=== PATIENT | female | born 1995 | race Caucasian/White ===

== ENCOUNTER 2019-03-01 22:39 | Emergency (ER) | payer OTHER ==
[2019-03-01] MEDS ORDERED: METHOCARBAMOL 1,000 MG/10 ML VIAL IV ONE (23:29)
[2019-03-01] MEDS ORDERED: NA CHLORIDE 0.9% 100 ML IV ONE (23:30)
[2019-03-01] MEDS ORDERED: KETOROLAC 30 MG/ML INJ ONE (23:30)
[2019-03-02] MEDS ORDERED: ONDANSETRON 4 MG/2 ML VIAL ONE (00:49)
[2019-03-02] MEDS ORDERED: MORPHINE 4 MG/ML SYR ONE (00:49)
[2019-03-02] MEDS ORDERED: PROMETHAZINE 25 MG/ML VIAL ONE (01:19)
[2019-03-02] MEDS ORDERED: DIAZEPAM 10 MG/2 ML INJ SYRINGE ONE (01:48)
[2019-03-02] MEDS ORDERED: METHYLPREDNISOLONE 125 MG INJ ONE (02:57)
--- NOTE | 2019-03-02 03:19 | ER ---
Nurse's Notes [facility] Name: Bernice Barron Age: 24 yrs Sex: Female : 1995 Arrival Date: 03/01/2019 Time: 22:48 Bed 24 Private MD: Diagnosis: Right Neck Pain;Torticollis Presentation: 03/01 22:56 Presenting complaint: Patient states: "I was in the shower and I turned my head to pop lp1 my neck and now I can't move and it's painful". Transition of care: patient was not received from another setting of care. Onset of symptoms was March 01, 2019 at 22:00. Risk Assessment: Do you want to hurt yourself or someone else? Patient reports no desire to harm self or others. Initial Sepsis Screen: Does the patient meet any 2 criteria? No. Patient's initial sepsis screen is negative. Does the patient have a suspected source of infection? No. Patient's initial sepsis screen is negative. Care prior to arrival: None. 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 - Social history:: Smoking status: Patient/guardian denies using tobacco. - Ebola Screening: : No symptoms or risks identified at this time. Screenin:58 Abuse screen: Denies threats or abuse. Denies injuries from another. Nutritional lp1 screening: No deficits noted. Tuberculosis screening: No symptoms or risk factors identified. Fall Risk None identified. Assessment: 23:36 General: Appears in no apparent distress. uncomfortable, Behavior is calm, cooperative, jd3 appropriate for age. Pain: Complains of pain in neck. Neuro: Level of Consciousness is awake, alert, obeys commands, Oriented to person, place, time, situation, Reports headache Denies blurred vision numbness diplopia. Cardiovascular: Capillary refill < 3 seconds Patient's skin is warm and dry. Respiratory: Airway is compromised Respiratory effort is even, unlabored, Respiratory pattern is regular, symmetrical. GI: No signs and/or symptoms were reported involving the gastrointestinal system. : No signs and/or symptoms were reported regarding the genitourinary system. EENT: No signs and/or symptoms were reported regarding the EENT system. Derm: Skin is intact, Skin is dry, Skin is normal, Skin temperature is warm. Musculoskeletal: Circulation, motion, and sensation intact. Range of motion: intact in all extremities. 03/02 00:31 Reassessment: Patient appears in no apparent distress at this time. Patient and/or jd3 family updated on plan of care and expected duration. Pain level reassessed. Patient is alert, oriented x 3, equal unlabored respirations, skin warm/dry/pink. reports the medication helped a little. reports continued pain, provider notified. awaiting results of CT. 01:23 Reassessment: Patient appears in no apparent distress at this time. Patient and/or jd3 family updated on plan of care and expected duration. Pain level reassessed. Patient is alert, oriented x 3, equal unlabored respirations, skin warm/dry/pink. reporting nausea, provider notified. 02:36 Reassessment: Patient appears in no apparent distress at this time. Patient and/or jd3 family updated on plan of care and expected duration. Pain level reassessed. Patient is alert, oriented x 3, equal unlabored respirations, skin warm/dry/pink. awaiting CT results. pt resting in bed with eye closed, even and unlabored respirations, IV site clean and dry, no redness or swelling. call castillo in reach. 03:09 Reassessment: Patient appears in no apparent distress at this time. Patient and/or jd3 family updated on plan of care and expected duration. Pain level reassessed. Patient is alert, oriented x 3, equal unlabored respirations, skin warm/dry/pink. pt reported understanding of discharge instructions. assisted pt to font of ER with wheelchair. Patient states feeling better. Vital Signs: 03/01 22:57 BP 131 / 70; Pulse 77; Resp 16; Temp 98.1(TE); Pulse Ox 98% on R/A; Weight 86.18 kg lp1 (R); Height 5 ft. 7 in. (170.18 cm); Pain 10/10; 03/02 01:22 BP 100 / 55; Pulse 64; Resp 18 S; Pulse Ox 99% on R/A; jd3 02:35 BP 100 / 50; Pulse 59; Resp 18 S; Pulse Ox 99% on R/A; jd3 03/01 22:57 Body Mass Index 29.76 (86.18 kg, 170.18 cm) lp1 ED Course: 03/01 22:48 Patient arrived in ED. mr 22:49 Nando Mace MD is Attending Physician. kdr 22:57 Triage completed. lp1 22:58 Arm band placed on. lp1 23:35 Binu Alexandra RN is Primary Nurse. jd3 23:39 Patient has correct armband on for positive identification. Bed in low position. Call jd3 light in reach. Side rails up X 1. Adult w/ patient. 23:39 Rigid cervical collar applied and checked by physician. jd3 23:[address] via wheelchair. 03/02 00:25 CT completed. Patient tolerated procedure well. Patient moved back from CT. 02:12 CT completed. Patient tolerated procedure well. Patient moved to CT via stretcher. Patient moved back from CT. 03:08 No provider procedures requiring assistance completed. IV discontinued, intact, jd3 bleeding controlled, No redness/swelling at site. Pressure dressing applied. 03:41 CT C Spine In Process Unspecified. EDMS 04:17 CT Neck Angio In Process Unspecified. EDMS Administered Medications: 03/01 23:36 Drug: Robaxin 1 grams Route: IVPB; Infused Over: 1 hrs; Site: left antecubital; jd3 03/02 00:35 Follow up: Response: No adverse reaction; IV Status: Completed infusion; IV Intake: jd3 100ml 03/01 23:36 Drug: TORadol - Ketorolac 15 mg Route: IVP; Site: left antecubital; jd3 03/02 00:35 Follow up: Response: No adverse reaction jd3 00:53 Drug: Zofran 4 mg Route: IVP; Site: left antecubital; jd3 01:50 Follow up: Response: No adverse reaction jd3 00:54 Drug: morphine 4 mg Route: IVP; Site: left antecubital; jd3 01:50 Follow up: Response: No adverse reaction; RASS: Alert and Calm (0) jd3 01:50 Drug: Valium 5 mg Route: IVP; Site: left antecubital; jd3 02:50 Follow up: Response: No adverse reaction jd3 Intake: 00:35 IV: 100ml; Total: 100ml. jd3 Outcome: 02:42 Discharge ordered by . kdr 03:09 Discharged to home via wheelchair, with friend. jd3 03:09 Condition: stable 03:09 Discharge instructions given to patient, friend, Instructed on discharge instructions, follow up and referral plans. medication usage, Demonstrated understanding of instructions, follow-up care, medications, Prescriptions given X 4. 03:10 Patient left the ED. jd3 Signatures: Dispatcher [employer] EDMS Nando Mace MD MD kdr Rivera, Adriana mota Sarah, Steffanie Roy RN RN lp1 Binu Alexandra RN RN jd3 Corrections: (The following items were deleted from the chart) 00:54 03/01 23:36 TORadol - Ketorolac 15 mg IVP in right antecubital jd3 jd3 03/02 00:55 09 23:36 Robaxin 1 grams IVPB in right antecubital over 1 hrs jd3 jd3
--- NOTE | 2019-03-02 03:21 | EDPHYS ---
Physician Documentation [facility] Name: Bernice Barron Age: 24 yrs Sex: Female : 1995 Arrival Date: 03/01/2019 Time: 22:48 Bed 24 Private MD: ED Physician Nando Mace HPI: 03/01 23:14 This 24 yrs old Female presents to ER via Ambulatory with complaints of Neck kdr Problem. 23:14 The patient or guardian complains of decreased range of motion, an injury, pain, that kdr is acute, spasm, tenderness. The symptoms are located at the C4, on the right posterior aspect of neck, right lateral aspect of neck and right side of neck. Onset: The symptoms/episode began/occurred suddenly, just prior to arrival. Context: The problem was sustained at home, The neck injury/problem resulted from Turning her head while in the shower. Associated signs and symptoms: The patient has no apparent associated signs or symptoms. The pain radiates to the right trapezius. Severity of symptoms: At their worst the symptoms were moderate, severe, incapacitating, just prior to arrival, in the emergency department the symptoms are unchanged. The patient has not experienced similar symptoms in the past. 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 - Social history:: Smoking status: Patient/guardian denies using tobacco. - Ebola Screening: : No symptoms or risks identified at this time. ROS: 23:14 Constitutional: Negative for fever, chills, and weight loss, Eyes: Negative for injury, kdr pain, redness, and discharge, ENT: Negative for injury, pain, and discharge, Cardiovascular: Negative for chest pain, palpitations, and edema, Respiratory: Negative for shortness of breath, cough, wheezing, and pleuritic chest pain, Abdomen/GI: Negative for abdominal pain, nausea, vomiting, diarrhea, and constipation, Back: Negative for injury and pain. 23:14 Neck: Positive for injury or acute deformity, pain with movement, pain at rest, stiffness, tenderness, bony tenderness, of the scalp and right side of neck. Exam: 23:14 Constitutional: This is a well developed, well nourished patient who is awake, alert, kdr and in no acute distress. Head/Face: Normocephalic, atraumatic. Eyes: Pupils equal round and reactive to light, extra-ocular motions intact. Lids and lashes normal. Conjunctiva and sclera are non-icteric and not injected. Cornea within normal limits. Periorbital areas with no swelling, redness, or edema. Chest/axilla: Normal chest wall appearance and motion. Nontender with no deformity. No lesions are appreciated. Cardiovascular: Regular rate and rhythm with a normal S1 and S2. No gallops, murmurs, or rubs. Normal PMI, no JVD. No pulse deficits. Respiratory: Lungs have equal breath sounds bilaterally, clear to auscultation and percussion. No rales, rhonchi or wheezes noted. No increased work of breathing, no retractions or nasal flaring. 23:14 Neck: External neck: tenderness, that is mild, Right lateral pain. Vital Signs: 22:57 BP 131 / 70; Pulse 77; Resp 16; Temp 98.1(TE); Pulse Ox 98% on R/A; Weight 86.18 kg lp1 (R); Height 5 ft. 7 in. (170.18 cm); Pain 04/05; 03/02 01:22 BP 100 / 55; Pulse 64; Resp 18 S; Pulse Ox 99% on R/A; jd3 02:35 BP 100 / 50; Pulse 59; Resp 18 S; Pulse Ox 99% on R/A; jd3 03/01 22:57 Body Mass Index 29.76 (86.18 kg, 170.18 cm) lp1 MDM: 03/01 23:14 Data reviewed: vital signs, nurses notes, radiologic studies. Counseling: I had a kdr detailed discussion with the patient and/or guardian regarding: the historical points, exam findings, and any diagnostic results supporting the discharge/admit diagnosis, radiology results. 03/02 01:55 ED course: While her pain has improved, she continues to have significant neck pain and kdr nausea. 02:42 Patient medically screened. kdr 02:49 ED course: The patient had only partial relief from the pain. kdr 03/01 23:13 Order name: CT C Spine kdr 03/02 01:18 Order name: CT Neck Angio kdr 03/01 23:13 Order name: Cervical Immobilization: Soft collar to neck; Complete Time: 23:35 kdr Administered Medications: 03/01 23:36 Drug: Robaxin 1 grams Route: IVPB; Infused Over: 1 hrs; Site: left antecubital; jd3 03/02 00:35 Follow up: Response: No adverse reaction; IV Status: Completed infusion; IV Intake: jd3 100ml 03/01 23:36 Drug: TORadol - Ketorolac 15 mg Route: IVP; Site: left antecubital; jd3 03/02 00:35 Follow up: Response: No adverse reaction jd3 00:53 Drug: Zofran 4 mg Route: IVP; Site: left antecubital; jd3 01:50 Follow up: Response: No adverse reaction jd3 00:54 Drug: morphine 4 mg Route: IVP; Site: left antecubital; jd3 01:50 Follow up: Response: No adverse reaction; RASS: Alert and Calm (0) jd3 01:50 Drug: Valium 5 mg Route: IVP; Site: left antecubital; jd3 02:50 Follow up: Response: No adverse reaction jd3 Disposition: 03/02/19 02:42 Discharged to Home. Impression: Right Neck Pain, Torticollis. - Condition is Stable. - Discharge Instructions: Acute Torticollis, Adult, Muscle Cramps and Spasms, [id number], Muscle Strain, [id number]. - Prescriptions for Ibuprofen 600 mg Oral Tablet - take 1 tablet by ORAL route every 6 hours As needed take with food; 16 tablet. Tylenol- Codeine #3 300-30 mg Oral Tablet - take 2 tablets by ORAL route every 6 hours As needed You may take one or two tablests every four to six hours as needed for pain; 16 tablet. Cyclobenzaprine 10 mg Oral Tablet - take 1 tablet by ORAL route every 8 hours As needed; 15 tablet. promethazine 25 mg Oral Tablet - take 1 tablet by ORAL route every 6 hours As needed; 12 tablet. - Medication Reconciliation Form, Thank You Letter, Prescription Opioid Use form. - Follow up: Private Physician; When: 2 - 3 days; Reason: If symptoms return, Further diagnostic work-up, Recheck today's complaints, Continuance of care, Re-evaluation by your physician. - Problem is new. - Symptoms have improved. Signatures: Dispatcher [employer] EDMS Nando Mace MD MD kdr Steffanie Arguello RN RN lp1 Binu Alexandra RN RN jd3 Corrections: (The following items were deleted from the chart) 03:10 02:42 03/02/2019 02:42 Discharged to Home. Impression: Right Neck Pain; Torticollis. jd3 Condition is Stable. Forms are Medication Reconciliation Form, Thank You Letter, Antibiotic Education, Prescription Opioid Use. Follow up: Private Physician; When: 2 - 3 days; Reason: If symptoms return, Further diagnostic work-up, Recheck today's complaints, Continuance of care, Re-evaluation by your physician. Problem is new. Symptoms have improved. kdr
--- NOTE | 2019-03-02 10:30 | RAD REPORT ---
EXAM DESCRIPTION: CT - C Spine Wo Con - 03/02/2019 3:18 am CLINICAL HISTORY: PAIN COMPARISON: None. TECHNIQUE: CT CERVICAL SPINE WITHOUT IV CONTRAST on 03/01/2019 11:13 PM CDT This exam was performed according to our departmental dose-optimization program, which includes autom ated exposure control, adjustment of the mA and/or kV according to patient size and/or use of iterati ve reconstruction technique. FINDINGS: There is no acute fracture. Alignment is anatomic. Disc spaces are maintained. Vertebral body heights are preserved. Soft tissues are unremarkable. IMPRESSION: No acute fracture or subluxation. Electronically signed by: Rigo Phillip MD 03/02/2019 12:28 AM CDT Due to temporary technical issues with the PACS/Fluency reporting system, reports are being signed by the in house radiologist as a courtesy to ensure prompt reporting. The interpreting radiologist is f ully responsible for the content of the report.
--- NOTE | 2019-03-02 10:42 | RAD REPORT ---
EXAM DESCRIPTION: CT - Neck Angio - 03/02/2019 3:20 am CLINICAL HISTORY: 24-year-old female with posterior right-sided neck pain after trying to pop her ne ck while in the shower. TECHNIQUE: Following dynamic intravenous nonionic contrast infusion, multiple axial helical CT image s with multiplanar reconstructions were obtained through the neck. The CT study is performed accordin g to ALARA (as low as reasonably achievable) or ALARA/IMAGE GENTLY, with automatic adjustment of mA a nd/or kV according to patient size. Performed on: 03/02/2019 at 2:06 AM COMPARISON: None FINDINGS: CTA NECK: AORTA: The aortic arch is well imaged and demonstrates conventional branching. The origins of the left sub clavian artery, left common carotid artery and innominate artery are patent. VERTEBRAL ARTERIES: The LEFT vertebral artery is normal in caliber and contour without evidence of dissection or signific ant stenosis. The RIGHT vertebral artery is normal in caliber and contour without evidence of dissection or signifi cant stenosis. CAROTID ARTERIES: The LEFT common carotid artery is unremarkable. There is no evidence of stenosis, dissection or occlu stefan The carotid bulb demonstrates no plaque. The LEFT internal carotid artery is normal in caliber and contour without evidence of significant stenosis, dissection or occlusion. The LEFT external car otid artery is unremarkable. The RIGHT common carotid artery is unremarkable. There is no evidence of stenosis, dissection or occl usion. The carotid bulb demonstrates no plaque. T the RIGHT internal carotid artery is unremarkable . There is no evidence of stenosis, dissection or occlusion. The RIGHT external carotid artery is unr emarkable. NON-ANGIOGRAPHIC FINDINGS: The lung apices are clear. The visualized cervical and thoracic spine are unremarkable. There is no e vidence of acute osseous abnormality. Incidentally noted, there are periapical lucencies surrounding the left mandibular 1st molar concerning for periodontal disease. There may also be dental caries inv olving this tooth. There are multiple small subcentimeter hypodense lesions within the thyroid gland. The largest measures approximately 0.9 cm in length along the inferior medial right thyroid lobe. IMPRESSION: 1. Normal CTA of the neck. There is no evidence of stenosis as per the NASCET criteria. 2. Multiple small subcentimeter hypodense lesions in the thyroid gland. No follow-up imaging is rec ommended. 3. Periodontal disease suspected involving the left mandibular 1st molar. Electronically signed by: Ethel Agosto DO 03/02/2019 2:30 AM CDT Due to temporary technical issues with the PACS/Fluency reporting system, reports are being signed by the in house radiologist as a courtesy to ensure prompt reporting. The interpreting radiologist is f ully responsible for the content of the report.
== END 2019-03-02 03:10 | disposition home or self-care (01) ==
LOC: ER 22:39
DX: M43.6 Torticollis (principal)
CPT/HCPCS: 96365; 72125; 70498; 96375; 99284; Q9967; J2550; J3360; J2930; J2405; J2800

== ENCOUNTER 2019-07-10 13:56 | Emergency (ER) | payer OTHER ==
--- NOTE | 2019-07-10 15:08 | ER ---
Nurse's Notes [facility] Name: Bernice Barron Age: 24 yrs Sex: Female : 1995 Arrival Date: 07/10/2019 Time: 13:58 Bed 16 Private MD: Diagnosis: Acute cystitis without hematuria Presentation: 07/10 14:11 Presenting complaint: Burning with urination and suprapubic pain x 2-3 days, left flank hb pain today. Transition of care: patient was not received from another setting of care. Onset of symptoms was July 09, 2019. Risk Assessment: Do you want to hurt yourself or someone else? Patient reports no desire to harm self or others. Initial Sepsis Screen: Does the patient meet any 2 criteria? No. Patient's initial sepsis screen is negative. Does the patient have a suspected source of infection? No. Patient's initial sepsis screen is negative. Care prior to arrival: Medication(s) given: Azo Standard at 0830. 14:11 Method Of Arrival: Ambulatory hb 14:11 Acuity: SMITA 3 hb Triage Assessment: 14:15 General: Appears in no apparent distress. comfortable, Behavior is calm, cooperative, bp appropriate for age. Pain: Complains of pain in pelvis. EENT: No deficits noted. Neuro: No deficits noted. Cardiovascular: No deficits noted. Respiratory: No deficits noted. GI: No signs and/or symptoms were reported involving the gastrointestinal system. : Reports burning with urination. Derm: No deficits noted. Musculoskeletal: No deficits noted. 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 - Social history:: Smoking status: Patient/guardian denies using tobacco. - Ebola Screening: : No symptoms or risks identified at this time. Screenin:15 Abuse screen: Denies threats or abuse. Denies injuries from another. Nutritional bp screening: No deficits noted. Tuberculosis screening: No symptoms or risk factors identified. Fall Risk None identified. Assessment: 14:15 General: SEE TRIAGE NOTE. bp 15:34 Reassessment: PT D/C HOME AMBULATORY WITH FAMILY, DX WITH CYSTITIS. iw Vital Signs: 14:12 BP 112 / 79; Pulse 79; Resp 16; Temp 97.8; Pulse Ox 100% on R/A; Weight 95.25 kg; hb Height 5 ft. 6 in. (167.64 cm); Pain 8/10; 15:34 BP 119 / 75; Pulse 75; Resp 16; Temp 98; Pulse Ox 100% ; iw 14:12 Body Mass Index 33.89 (95.25 kg, 167.64 cm) hb ED Course: 13:58 Patient arrived in ED. as 14:12 Triage completed. hb 14:12 Arm band placed on. hb 14:15 Patient has correct armband on for positive identification. Bed in low position. Call bp light in reach. Side rails up X2. Adult w/ patient. 14:34 Inder Mcclellan, RN is Primary Nurse. bp 14:35 Flo Bonilla MD is Attending Physician. ps1 15:34 No provider procedures requiring assistance completed. Patient did not have IV access iw during this emergency room visit. Administered Medications: No medications were administered Outcome: 15:08 Discharge ordered by . ps1 15:34 Discharged to home ambulatory, with family. iw 15:34 Condition: stable 15:34 Discharge instructions given to patient, Instructed on discharge instructions, follow up and referral plans. medication usage, Demonstrated understanding of instructions, follow-up care, medications, Prescriptions given X 2. 15:35 Patient left the ED. iw Signatures: Cleo Pop Irene, RN RN Karely Esqueda RN RN Inder Mcclellan RN RN bp Flo Bonilla MD MD ps1
--- NOTE | 2019-07-10 15:08 | EDPHYS ---
Physician Documentation [facility] Name: Bernice Barron Age: 24 yrs Sex: Female : 1995 Arrival Date: 07/10/2019 Time: 13:58 Bed 16 Private MD: ED Physician Flo Bonilla HPI: 07/10 14:47 This 24 yrs old Female presents to ER via Ambulatory with complaints of ps1 Urinary Problem. 14:47 patient complains of dysuria, suprapubic pain, and frequency for 3 days. Took an azo ps1 this morning. LMP last month. No fever, chills, or CVA tenderness. Pain is moderate worse with urination. . 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 - Social history:: Smoking status: Patient/guardian denies using tobacco. - Ebola Screening: : No symptoms or risks identified at this time. ROS: 14:47 Positive for urinary symptoms, pelvic pain, burning with urination. ps1 14:47 Constitutional: Negative for fever, chills, and weight loss, Cardiovascular: Negative for chest pain, palpitations, and edema, Abdomen/GI: Negative for abdominal pain, nausea, vomiting, diarrhea, and constipation, MS/Extremity: Negative for injury and deformity, Skin: Negative for injury, rash, and discoloration, Neuro: Negative for headache, weakness, numbness, tingling, and seizure. Exam: 14:47 Constitutional: This is a well developed, well nourished patient who is awake, alert, ps1 and in no acute distress. Head/Face: Normocephalic, atraumatic. Eyes: Pupils equal round and reactive to light, extra-ocular motions intact. Lids and lashes normal. Conjunctiva and sclera are non-icteric and not injected. Cardiovascular: Regular rate and rhythm. No gallops, murmurs, or rubs. Normal PMI, no JVD. No pulse deficits. Respiratory: Lungs have equal breath sounds bilaterally, clear to auscultation and percussion. No rales, rhonchi or wheezes noted. No increased work of breathing, no retractions or nasal flaring. MS/ Extremity: Pulses equal, no cyanosis. Neurovascular intact. Full, normal range of motion. Neuro: Awake and alert, GCS 15, oriented to person, place, time, and situation. Cranial nerves II-XII grossly intact. Sensory grossly intact. 14:47 Abdomen/GI: Inspection: abdomen appears normal, Bowel sounds: normal, Palpation: mild abdominal tenderness, in the suprapubic area. Vital Signs: 14:12 BP 112 / 79; Pulse 79; Resp 16; Temp 97.8; Pulse Ox 100% on R/A; Weight 95.25 kg; hb Height 5 ft. 6 in. (167.64 cm); Pain 8/10; 15:34 BP 119 / 75; Pulse 75; Resp 16; Temp 98; Pulse Ox 100% ; iw 14:12 Body Mass Index 33.89 (95.25 kg, 167.64 cm) hb MDM: 15:07 Patient medically screened. ps1 15:09 Data reviewed: vital signs, nurses notes, lab test result(s), and as a result, I will ps1 discharge patient. Counseling: I had a detailed discussion with the patient and/or guardian regarding: the historical points, exam findings, and any diagnostic results supporting the discharge/admit diagnosis, lab results, the need for outpatient follow up, to return to the emergency department if symptoms worsen or persist or if there are any questions or concerns that arise at home. 07/10 14:47 Order name: Urine Culture ps1 07/10 14:58 Order name: Urine Dipstick--Ancillary (enter results) bd 07/10 14:47 Order name: Urine Dipstick-Ancillary (obtain specimen); Complete Time: 15:00 ps1 07/10 14:58 Order name: Urine --Ancillary (enter results) bd 07/10 15:28 Order name: Urine Microscopic Only EDOK 07/10 15:01 Order name: Urine Test (obtain specimen); Complete Time: 15:01 bp Administered Medications: No medications were administered Disposition: 07/10/19 15:08 Discharged to Home. Impression: Acute cystitis without hematuria. - Condition is Stable. - Discharge Instructions: Urinary Tract Infection, Adult. - Prescriptions for Keflex 500 mg Oral Capsule - take 1 capsule by ORAL route every 8 hours for 5 days; 15 capsule. Pyridium 200 mg Oral Tablet - take 1 tablet by ORAL route every 8 hours for 3 days; 9 tablet. - Medication Reconciliation Form, Thank You Letter, Antibiotic Education, Prescription Opioid Use form. - Follow up: Private Physician; When: 48 Hours; Reason: Further diagnostic work-up, Recheck today's complaints, Continuance of care, Re-evaluation by your physician. Follow up: Emergency Department; When: As needed; Reason: Fever > 102 F, Worsening of condition. - Problem is new. - Symptoms are unchanged. Signatures: Dispatcher [employer] EDMS Teena Rodas RN RN iw Karely Esqueda RN RN hb Inder Mcclellan RN RN bp Flo Bonilla MD MD ps1 Corrections: (The following items were deleted from the chart) 15:35 15:08 07/10/2019 15:08 Discharged to Home. Impression: Acute cystitis without iw hematuria. Condition is Stable. Forms are Medication Reconciliation Form, Thank You Letter, Antibiotic Education, Prescription Opioid Use. Follow up: Private Physician; When: 48 Hours; Reason: Further diagnostic work-up, Recheck today's complaints, Continuance of care, Re-evaluation by your physician. Follow up: Emergency Department; When: As needed; Reason: Fever > 102 F, Worsening of condition. Problem is new. Symptoms are unchanged. ps1
[2019-07-10 15:39] VITALS: O2SAT 100
[2019-07-10 15:41] VITALS: BP 119/75; TEMP 98
[2019-07-10 15:47] LABS: Urine Blood NEGATIVE (NEG); Urine Glucose TRACE (NEG); Urine Protein NEGATIVE (NEG); Urine pH 8.5 (5.0-7.0)
[2019-07-10 16:14] LABS: Urine Bacteria 20-50 /HPF (<20); Urine Culture Reflex Order NOT NEEDED; Urine RBC <5 /HPF (NONE SEEN)
== END 2019-07-10 15:35 | disposition home or self-care (01) ==
LOC: ER 13:56
DX: N30.00 Acute cystitis without hematuria (principal)
CPT/HCPCS: 81003; 81015; 81025; 87086; 87088; 99282

== ENCOUNTER 2019-09-03 04:03 | Emergency (ER) | payer OTHER ==
[2019-09-03] MEDS ORDERED: ONDANSETRON 4 MG/2 ML VIAL ONE (04:56)
[2019-09-03] MEDS ORDERED: FAMOTIDINE 20 MG/2 ML VIAL IV ONE (04:56)
[2019-09-03] MEDS ORDERED: NA CHLORIDE 0.9% 1,000 ML ONE (04:56)
[2019-09-03 05:10] LABS: Absolute Lymphocytes (CBC) 1.1 K/uL (0.7-4.9); Basophils % 0.3 % (0-1.3); Hematocrit 41.6 % (36.0-45.0); Lymphocytes % 6.6 % (15.3-44.8); MPV 8.2 fL (7.6-11.3); RBC Red Blood Cell Count 4.85 M/uL (3.86-4.86)
[2019-09-03 05:22] LABS: ALT/SGPT 25 U/L (12-78); AST/SGOT 16 U/L (15-37); Alkaline Phosphatase 99 U/L (45-117); BUN Blood Urea Nitrogen 16 mg/dL (7-18); Bicarbonate 26 mmol/L (21-32); Bilirubin Direct < 0.1 mg/dL (0-0.2); Bilirubin Total 0.3 mg/dL (0.2-1.0); Glucose Level 118 mg/dL (74-106); Lipase 118 U/L (73-393); Potassium 3.6 mmol/L (3.5-5.1); Protein, Total 7.9 g/dL (6.4-8.2); Sodium Level 139 mmol/L (136-145)
--- NOTE | 2019-09-03 05:32 | EDPHYS ---
Physician Documentation [facility] [place], [place] Name: Bernice Barron Age: 24 yrs Sex: Female : 1995 Arrival Date: 09/03/2019 Time: 04:08 Bed 13 Private MD: ED Physician Jasmin Galindo HPI: 09/02 05:19 This 24 yrs old Female presents to ER via Ambulatory with complaints of ma2 Nausea/Vomiting/Diarrhea. 05:19 The patient presents to the emergency department with nausea, vomiting, diarrhea. ma2 Onset: The symptoms/episode began/occurred gradually, 1 day(s) ago. Associated signs and symptoms: Pertinent positives: diarrhea, Pertinent negatives: constipation, dysuria, flatulence, hematuria. Severity of symptoms: At their worst the symptoms were moderate in the emergency department the symptoms are unchanged. The patient has not experienced similar symptoms in the past. 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 - Social history:: Smoking status: Patient uses alcohol, occasionally. Patient/guardian denies using. - Family history:: not pertinent. ROS: 05:19 Constitutional: Negative for fever, chills, and weight loss. ma2 05:19 All other systems are negative. Exam: 05:19 Constitutional: This is a well developed, well nourished patient who is awake, alert, ma2 and in no acute distress. Chest/axilla: Normal chest wall appearance and motion. Nontender with no deformity. No lesions are appreciated. Cardiovascular: Regular rate and rhythm with a normal S1 and S2. No gallops, murmurs, or rubs. Normal PMI, no JVD. No pulse deficits. Respiratory: Lungs have equal breath sounds bilaterally, clear to auscultation and percussion. No rales, rhonchi or wheezes noted. No increased work of breathing, no retractions or nasal flaring. Abdomen/GI: Soft, non-tender, with normal bowel sounds. No distension or tympany. No guarding or rebound. No evidence of tenderness throughout. Back: No spinal tenderness. No costovertebral tenderness. Full range of motion. Skin: Warm, dry with normal turgor. Normal color with no rashes, no lesions, and no evidence of cellulitis. Neuro: Awake and alert, GCS 15, oriented to person, place, time, and situation. Cranial nerves II-XII grossly intact. Motor strength 5/5 in all extremities. Sensory grossly intact. Cerebellar exam normal. Normal gait. Vital Signs: 04:15 BP 116 / 73; Pulse 90; Resp 18; Temp 97.9; Pulse Ox 100% ; Weight 95.25 kg; Height 5 wh ft. 7 in. (170.18 cm); 05:30 BP 111 / 59; Pulse 79; Resp 18; Pulse Ox 100% on R/A; wh 04:15 Body Mass Index 32.89 (95.25 kg, 170.18 cm) MDM: 04:11 Patient medically screened. id2 05:19 Differential diagnosis: Nonspecific abd pain, gastritis, viral gastroenteritis, ma2 gastroenteritis. Data reviewed: vital signs, nurses notes. Counseling: I had a detailed discussion with the patient and/or guardian regarding: the historical points, exam findings, and any diagnostic results supporting the discharge/admit diagnosis, the presence of at least one elevated blood pressure reading (>120/80) during this emergency department visit, the need for outpatient follow up. Response to treatment: the patient's symptoms have resolved after treatment. 09/02 04:31 Order name: Basic Metabolic Panel; Complete Time: 05:31 id2 09/02 04:31 Order name: CBC with Diff id2 09/02 04:31 Order name: Creatinine for Radiology; Complete Time: 05:31 09/02 04:31 Order name: Hepatic Function; Complete Time: 05:31 ma2 09/02 04:31 Order name: Lipase; Complete Time: 05:31 id2 09/02 05:18 Order name: Manual Differential EDMS 09/02 04:31 Order name: IV Saline Lock; Complete Time: 04:49 09/02 04:31 Order name: Labs collected and sent; Complete Time: 04:49 ma2 Administered Medications: 04:51 Drug: NS 0.9% 1000 ml Route: IV; Rate: 1 bolus; Site: right antecubital; 05:57 Follow up: Response: No adverse reaction; IV Status: Completed infusion 04:53 Drug: Pepcid 20 mg Route: IVP; Site: right antecubital; 05:57 Follow up: Response: No adverse reaction 04:55 Drug: Zofran (Ondansetron) 4 mg Route: IVP; Site: right antecubital; 05:57 Follow up: Response: No adverse reaction; Nausea is decreased Disposition: 09/03/19 05:31 Discharged to Home. Impression: Diarrhea, unspecified. - Condition is Stable. - Discharge Instructions: Food Choices to Help Relieve Diarrhea, Adult, Diarrhea, Adult. - Prescriptions for Zofran 4 mg Oral Tablet - take 1 tablet by ORAL route every 12 hours As needed; 20 tablet. Pepcid 20 mg Oral Tablet - take 1 tablet by ORAL route once daily for 10 days; 10 tablet. - Family Work Release, Medication Reconciliation Form, Thank You Letter, Antibiotic Education, Prescription Opioid Use, Work release form form. - Follow up: Private Physician; When: Tomorrow; Reason: Continuance of care. Signatures: Dispatcher [employer] EDAllison Mark Jasmin Galindo MD MD ma2 Corrections: (The following items were deleted from the chart) 05:59 05:31 09/03/2019 05:31 Discharged to Home. Impression: Diarrhea, unspecified. Condition is Stable. Discharge Instructions: Food Choices to Help Relieve Diarrhea, Adult, Diarrhea, Adult. Prescriptions for Zofran 4 mg Oral Tablet - take 1 tablet by ORAL route every 12 hours As needed; 20 tablet, Pepcid 20 mg Oral Tablet - take 1 tablet by ORAL route once daily for 10 days; 10 tablet. and Forms are Medication Reconciliation Form, Thank You Letter, Antibiotic Education, Prescription Opioid Use. Follow up: Private Physician; When: Tomorrow; Reason: Continuance of care. ma2
--- NOTE | 2019-09-03 05:32 | ER ---
Nurse's Notes [facility] Name: Bernice Barron Age: 24 yrs Sex: Female : 1995 Arrival Date: 09/03/2019 Time: 04:08 Bed 13 Private MD: Diagnosis: Diarrhea, unspecified Presentation: 09/02 04:15 Chief complaint: Patient states: Nausea, vomiting and diarrhea that started this 1:00 am. Pt states she had 4 bowel movements. Pt denies fever or abdominal pain. Coronavirus screen: The patient has NOT traveled to a country currently being monitored by the [facility] within the last 14 days. Ebola Screen: Patient negative for fever greater than or equal to 101.5 degrees Fahrenheit, and additional compatible Ebola Virus Disease symptoms Patient denies exposure to infectious person. Initial Sepsis Screen: Does the patient meet any 2 criteria? No. Patient's initial sepsis screen is negative. Does the patient have a suspected source of infection? No. Patient's initial sepsis screen is negative. Risk Assessment: Do you want to hurt yourself or someone else? Patient reports no desire to harm self or others. 04:15 Method Of Arrival: Ambulatory 04:15 Acuity: SMITA 3 04:19 Onset of symptoms was September 03, 2019. FIRST DYER: 04:19 [facility] 08/2019 Historical: - Allergies: 04:17 No Known Allergies; - Home Meds: 04:17 None [Active]; - PMHx: 04:17 None; - PSHx: 04:17 None; - Immunization history:: Adult Immunizations up to date. - Social history:: Smoking status: Patient uses alcohol, occasionally. Patient/guardian denies using. - Family history:: not pertinent. Screenin:19 Abuse screen: Denies threats or abuse. Denies injuries from another. Nutritional screening: No deficits noted. Tuberculosis screening: No symptoms or risk factors identified. Fall Risk None identified. Assessment: 04:18 General: Appears in no apparent distress. Behavior is calm, cooperative, appropriate for age. Pain: Denies pain. Neuro: Level of Consciousness is awake, alert, obeys commands, Oriented to person, place, time, situation, Appropriate for age. Cardiovascular: Heart tones S1 S2. Respiratory: Airway is patent Respiratory effort is even, unlabored, Respiratory pattern is regular, symmetrical, Breath sounds are clear bilaterally. GI: Abdomen is flat, non-distended, Bowel sounds present X 4 quads. Abd is soft and non tender X 4 quads. Reports diarrhea, nausea, vomiting. : No signs and/or symptoms were reported regarding the genitourinary system. EENT: No signs and/or symptoms were reported regarding the EENT system. Derm: Skin is intact, is healthy with good turgor, Skin is pink, warm \T\ dry. normal. Musculoskeletal: Circulation, motion, and sensation intact. 05:30 Reassessment: Patient appears in no apparent distress at this time. No changes from previously documented assessment. Patient and/or family updated on plan of care and expected duration. Pain level reassessed. Patient is alert/active/playful, equal unlabored respirations, skin warm/dry/pink. Patient states feeling better. Patient states symptoms have improved. Vital Signs: 04:15 BP 116 / 73; Pulse 90; Resp 18; Temp 97.9; Pulse Ox 100% ; Weight 95.25 kg; Height 5 wh ft. 7 in. (170.18 cm); 05:30 BP 111 / 59; Pulse 79; Resp 18; Pulse Ox 100% on R/A; 04:15 Body Mass Index 32.89 (95.25 kg, 170.18 cm) ED Course: 04:08 Patient arrived in ED. ds1 04:10 Allison Salvador is Primary Nurse. 04:11 Jasmin Galindo MD is Attending Physician. ma2 04:17 Triage completed. 04:19 Arm band placed on right wrist. 04:19 Patient has correct armband on for positive identification. Bed in low position. Call light in reach. Side rails up X 1. Pulse ox on. NIBP on. 05:57 No provider procedures requiring assistance completed. IV discontinued, intact, bleeding controlled, No redness/swelling at site. 05:58 Inserted saline lock: 20 gauge in right antecubital area, using aseptic technique. Blood collected. Administered Medications: 04:51 Drug: NS 0.9% 1000 ml Route: IV; Rate: 1 bolus; Site: right antecubital; 05:57 Follow up: Response: No adverse reaction; IV Status: Completed infusion 04:53 Drug: Pepcid 20 mg Route: IVP; Site: right antecubital; 05:57 Follow up: Response: No adverse reaction 04:55 Drug: Zofran (Ondansetron) 4 mg Route: IVP; Site: right antecubital; 05:57 Follow up: Response: No adverse reaction; Nausea is decreased Outcome: 05:31 Discharge ordered by MD. avalos 05:58 Discharged to home ambulatory, with family. 05:58 Condition: stable 05:58 Discharge instructions given to patient, family, Instructed on discharge instructions, follow up and referral plans. medication usage, POC Demonstrated understanding of instructions, follow-up care, medications, POC Prescriptions given X 2. 05:59 Patient left the ED. Signatures: Violetta Denton Winsy Jasmin Galindo MD MD ma2
[2019-09-03 06:20] VITALS: TEMP 97.9; O2SAT 100
[2019-09-03 06:22] VITALS: BP 111/59
[2019-09-03 06:24] LABS: Platelet Estimate ADEQ
[2019-09-03 06:25] LABS: Blood Morphology Comment NOT SEEN (NOT SEEN)
== END 2019-09-03 05:59 | disposition home or self-care (01) ==
LOC: ER 04:03
DX: R19.7 Diarrhea, unspecified (principal)
CPT/HCPCS: 96361; 85025; 80048; 36415; 80076; 83690; 96375; 96374; 99284; J7030; J2405